=== PATIENT | female | born 1975 | race Caucasian/White ===

== ENCOUNTER → 2017-07-19 | Outpatient (CLI) | payer OTHER ==
[~2017-07-19] MED LIST: GADOBUTROL 7.5 MMOL/7.5 ML (GADAVIST) VIAL IV ONE
--- NOTE | 2017-07-19 11:30 | Diagnostic Imaging Report ---
EXAMINATION: Multiplanar, multisequence MRI of the brain is performed without and with intravenous contrast with thin section images through the pituitary gland area. INDICATION: Unexplained fever and headache. 7 mL of Omnipaque 350 is administered intravenously. FINDINGS: No diffusion restriction is seen to suggest an acute infarct or other diffusion abnormality. The brain parenchyma demonstrates normal signal in the rodríguez and white matter. No demyelinating lesion, brain edema or mass. No enhancing lesion. No hydrocephalus. No extra-axial fluid collection. The pituitary gland is normal in size. No hypothalamic or pineal region mass. Thin section images with dynamic postcontrast multiphase coronal images through the pituitary gland is performed and demonstrates no definite focal lesion. The orbits appear symmetric. There is mucosal retention cyst in the inferior aspect of the right maxillary sinus. IMPRESSION: Unremarkable exam. Dictated by: Dictated on workstation # [id number]
== END ==
LOC: RAD 07:53
PROVIDERS: ATTEND Nurse Practitioner Family
DX: D35.2 Benign neoplasm of pituitary gland (principal); R20.2 Paresthesia of skin; R51 Headache; R50.9 Fever, unspecified
CPT/HCPCS: 70553

== ENCOUNTER 2017-12-03 11:20 | Outpatient (RCR) | payer OTHER ==
[2017-09-14 13:30] VITALS: BP 134/84
[2017-09-14 13:46] LABS: BILIRUBIN,URINE NEGATIVE (NEGATIVE); CLARITY,URINE CLEAR; COLOR,URINE YELLOW; GLUCOSE, URINE (UA) NEGATIVE (NEGATIVE); KETONES,URINE NEGATIVE (NEGATIVE); LEUKOCYTE ESTERASE ,URINE 1+ (NEGATIVE); NITRITE,URINE NEGATIVE (NEGATIVE); PH,URINE 6.5 (5-9); PROTEIN,URINE NEGATIVE (NEGATIVE); UROBILINOGEN,URINE NORMAL (NORMAL)
[2017-09-14 14:06] LABS: RBC,URINE RARE /HPF
[2017-09-14 14:07] LABS: BACTERIA,URINE FEW /HPF
[2017-09-14] MEDS: cefTRIAXone 1 GM/NS 50 ML IVPB IV SCH ×2 (14:38)
[2017-09-14 14:47] LABS: MEAN PLATELET VOLUME 10.8 FL (7.4-10.4); RED BLOOD COUNT 4.33 10^6/uL (4.35-5.85); RED CELL DISTRIBUTION WIDTH 13.5 % (10.0-14.5)
[2017-09-14 15:03] LABS: ALANINE AMINOTRANSFERASE 15 U/L (0-55); ALBUMIN 4.1 GM/DL (3.2-4.5); ALKALINE PHOSPHATASE 49 U/L (40-136); BILIRUBIN,TOTAL 0.5 MG/DL (0.1-1.0); BUN/CREATININE RATIO 18; CALCIUM 9.3 MG/DL (8.5-10.1); CARBON DIOXIDE 22 MMOL/L (21-32); CHLORIDE 106 MMOL/L (98-107); CREATININE SERUM 0.72 MG/DL (0.60-1.30); GFR ESTIMATED > 60; GLUCOSE 105 MG/DL (70-105); SODIUM 137 MMOL/L (135-145)
[2017-09-14 15:10] VITALS: BP 134/84
[2017-09-15 11:20] VITALS: BP 135/99
[2017-09-15] MEDS: cefTRIAXone 1 GM/NS 50 ML IVPB IV SCH ×2 (11:31)
[2017-09-16] MEDS: cefTRIAXone 1 GM/NS 50 ML IVPB IV SCH ×2 (09:55)
[2017-09-16 10:00] VITALS: BP 123/76
[2017-09-17 11:40] VITALS: BP 114/72
[2017-09-17] MEDS: cefTRIAXone 1 GM/NS 50 ML IVPB IV SCH ×2 (11:45)
[2017-09-18] MEDS: cefTRIAXone 1 GM/NS 50 ML IVPB IV SCH ×2 (09:54)
[2017-09-18 09:56] VITALS: BP 121/79
[2017-09-18 10:23] VITALS: BP 121/79
[2017-09-19] MEDS: cefTRIAXone 1 GM/NS 50 ML IVPB IV SCH ×2 (09:18)
[2017-09-19 09:24] VITALS: BP 115/73
[2017-09-19 09:48] VITALS: BP 115/73
[2017-09-20 11:30] VITALS: BP 112/77
[2017-09-20] MEDS: cefTRIAXone 1 GM/NS 50 ML IVPB IV SCH ×2 (11:35)
[2017-09-21] MEDS: cefTRIAXone 1 GM/NS 50 ML IVPB IV SCH ×2 (11:52)
[2017-09-21 11:53] VITALS: BP 131/79
[2017-09-22 10:15] VITALS: BP 134/86
[2017-09-22] MEDS: cefTRIAXone 1 GM/NS 50 ML IVPB IV SCH ×2 (10:15)
[2017-09-23] MEDS: cefTRIAXone 1 GM/NS 50 ML IVPB IV SCH ×2 (08:56)
[2017-09-23 10:13] VITALS: BP 119/80
[2017-09-24] MEDS: cefTRIAXone 1 GM/NS 50 ML IVPB IV SCH ×2 (10:10)
[2017-09-24 10:42] VITALS: BP 116/80
[2017-09-25] MEDS: cefTRIAXone 1 GM/NS 50 ML IVPB IV SCH ×2 (09:15)
[2017-09-25] MEDS: CATHETER FLUSH 10 ML SYR IV PRN ×2 (09:15→09:45)
[2017-09-25 10:02] VITALS: BP 111/79
[2017-09-26] MEDS: cefTRIAXone 1 GM/NS 50 ML IVPB IV SCH ×2 (10:05)
[2017-09-26] MEDS: CATHETER FLUSH 10 ML SYR IV PRN ×2 (10:05→10:35)
[2017-09-26 10:37] VITALS: BP 118/77
[2017-09-27] MEDS: CATHETER FLUSH 10 ML SYR IV PRN ×2 (13:30→14:00)
[2017-09-27] MEDS: cefTRIAXone 1 GM/NS 50 ML IVPB IV SCH ×2 (13:30)
[2017-09-27 13:43] LABS: HEMOGLOBIN 12.8 G/DL (11.5-16.0); MEAN PLATELET VOLUME 10.9 FL (7.4-10.4); RED BLOOD COUNT 4.35 10^6/uL (4.35-5.85); RED CELL DISTRIBUTION WIDTH 13.4 % (10.0-14.5); WHITE BLOOD COUNT 9.3 10^3/uL (4.3-11.0)
[2017-09-27 14:01] LABS: ALANINE AMINOTRANSFERASE 12 U/L (0-55); ALBUMIN 4.3 GM/DL (3.2-4.5); ALKALINE PHOSPHATASE 51 U/L (40-136); BILIRUBIN,TOTAL 0.5 MG/DL (0.1-1.0); BUN/CREATININE RATIO 17; CALCIUM 9.4 MG/DL (8.5-10.1); CARBON DIOXIDE 25 MMOL/L (21-32); CHLORIDE 107 MMOL/L (98-107); CREATININE SERUM 0.81 MG/DL (0.60-1.30); GFR ESTIMATED > 60; GLUCOSE 122 MG/DL (70-105); POTASSIUM 3.9 MMOL/L (3.6-5.0); SODIUM 140 MMOL/L (135-145); TOTAL PROTEIN 6.9 GM/DL (6.4-8.2)
[2017-09-27 14:03] VITALS: BP 133/70
[2017-09-27 14:10] LABS: BILIRUBIN,URINE NEGATIVE (NEGATIVE); CLARITY,URINE CLEAR; COLOR,URINE YELLOW; GLUCOSE, URINE (UA) NEGATIVE (NEGATIVE); KETONES,URINE NEGATIVE (NEGATIVE); LEUKOCYTE ESTERASE ,URINE NEGATIVE (NEGATIVE); NITRITE,URINE NEGATIVE (NEGATIVE); PH,URINE 5 (5-9); PROTEIN,URINE NEGATIVE (NEGATIVE); UROBILINOGEN,URINE NORMAL (NORMAL)
[2017-09-27 14:16] LABS: BACTERIA,URINE NEGATIVE /HPF
[2017-09-28] MEDS: CATHETER FLUSH 10 ML SYR IV PRN ×2 (09:44→10:15)
[2017-09-28] MEDS: cefTRIAXone 1 GM/NS 50 ML IVPB IV SCH ×2 (09:45)
[2017-09-28 10:15] VITALS: BP 123/80
[2017-09-29] MEDS: CATHETER FLUSH 10 ML SYR IV PRN ×2 (10:14→10:48)
[2017-09-29] MEDS: cefTRIAXone 1 GM/NS 50 ML IVPB IV SCH ×2 (10:16)
[2017-09-29 10:48] VITALS: BP 129/83
[2017-09-30] MEDS: cefTRIAXone 1 GM/NS 50 ML IVPB IV SCH ×2 (09:57)
[2017-09-30 09:58] VITALS: BP 126/77
[2017-10-01] MEDS: cefTRIAXone 1 GM/NS 50 ML IVPB IV SCH ×2 (09:32)
[2017-10-01] MEDS: CATHETER FLUSH 10 ML SYR IV PRN (09:32)
[2017-10-01 10:45] VITALS: BP 127/95
[2017-10-02] MEDS: cefTRIAXone 1 GM/NS 50 ML IVPB IV SCH ×2 (09:51)
[2017-10-02] MEDS: CATHETER FLUSH 10 ML SYR IV PRN (09:53)
[2017-10-02 10:20] VITALS: BP 123/78
[2017-10-03] MEDS: CATHETER FLUSH 10 ML SYR IV PRN (10:00)
[2017-10-03] MEDS: cefTRIAXone 1 GM/NS 50 ML IVPB IV SCH ×2 (10:00)
[2017-10-03 10:30] VITALS: BP 111/86
[2017-10-04 12:30] VITALS: BP 116/79
[2017-10-04] MEDS: CATHETER FLUSH 10 ML SYR IV PRN (12:35)
[2017-10-04] MEDS: cefTRIAXone 1 GM/NS 50 ML IVPB IV SCH ×2 (12:40)
[2017-10-05] MEDS: cefTRIAXone 1 GM/NS 50 ML IVPB IV SCH ×2 (09:00)
[2017-10-05] MEDS: CATHETER FLUSH 10 ML SYR IV PRN ×2 (09:00→09:30)
[2017-10-05 09:14] LABS: HEMOGLOBIN 12.6 G/DL (11.5-16.0); MEAN PLATELET VOLUME 10.6 FL (7.4-10.4); RED BLOOD COUNT 4.23 10^6/uL (4.35-5.85); RED CELL DISTRIBUTION WIDTH 13.4 % (10.0-14.5); WHITE BLOOD COUNT 7.5 10^3/uL (4.3-11.0)
[2017-10-05 09:28] LABS: ALANINE AMINOTRANSFERASE 15 U/L (0-55); ALBUMIN 4.4 GM/DL (3.2-4.5); ALKALINE PHOSPHATASE 46 U/L (40-136); BILIRUBIN,TOTAL 0.6 MG/DL (0.1-1.0); BUN/CREATININE RATIO 17; CALCIUM 9.1 MG/DL (8.5-10.1); CARBON DIOXIDE 25 MMOL/L (21-32); CHLORIDE 108 MMOL/L (98-107); CREATININE SERUM 0.71 MG/DL (0.60-1.30); GFR ESTIMATED > 60; GLUCOSE 87 MG/DL (70-105); POTASSIUM 4.1 MMOL/L (3.6-5.0); SODIUM 140 MMOL/L (135-145)
[2017-10-05 09:40] VITALS: BP 109/89
[2017-10-05 09:44] LABS: BILIRUBIN,URINE NEGATIVE (NEGATIVE); CLARITY,URINE CLEAR; COLOR,URINE YELLOW; GLUCOSE, URINE (UA) NEGATIVE (NEGATIVE); KETONES,URINE NEGATIVE (NEGATIVE); LEUKOCYTE ESTERASE ,URINE NEGATIVE (NEGATIVE); NITRITE,URINE NEGATIVE (NEGATIVE); PH,URINE 7 (5-9); PROTEIN,URINE NEGATIVE (NEGATIVE); UROBILINOGEN,URINE NORMAL (NORMAL)
[2017-10-05 10:06] LABS: BACTERIA,URINE NEGATIVE /HPF
[2017-10-06] MEDS: cefTRIAXone 1 GM/NS 50 ML IVPB IV SCH ×2 (09:42)
[2017-10-06 10:23] VITALS: BP 138/82
[2017-10-07] MEDS: cefTRIAXone 1 GM/NS 100 ML IVPB IV SCH ×2 (10:04)
[2017-10-07 10:39] VITALS: BP 118/88
[2017-10-08] MEDS: cefTRIAXone 1 GM/NS 100 ML IVPB IV SCH ×2 (09:36)
[2017-10-08 10:09] VITALS: BP 122/81
[2017-10-09] MEDS: CATHETER FLUSH 10 ML SYR IV PRN ×2 (09:59→10:30)
[2017-10-09 10:00] VITALS: BP 119/75
[2017-10-09] MEDS: cefTRIAXone 1 GM/NS 100 ML IVPB IV SCH ×2 (10:00)
[2017-10-10] MEDS: CATHETER FLUSH 10 ML SYR IV PRN ×2 (10:17→10:46)
[2017-10-10] MEDS: cefTRIAXone 1 GM/NS 100 ML IVPB IV SCH ×2 (10:17)
[2017-10-10 10:57] VITALS: BP 129/90
[2017-10-11 10:30] VITALS: BP 121/73
[2017-10-11] MEDS: CATHETER FLUSH 10 ML SYR IV PRN (10:35)
[2017-10-11] MEDS: cefTRIAXone 1 GM/NS 100 ML IVPB IV SCH ×2 (10:40)
[2017-10-12] MEDS: cefTRIAXone 1 GM/NS 100 ML IVPB IV SCH ×2 (09:50)
[2017-10-12] MEDS: CATHETER FLUSH 10 ML SYR IV PRN ×2 (09:50→10:23)
[2017-10-12 10:03] LABS: HEMOGLOBIN 12.6 G/DL (11.5-16.0); MEAN PLATELET VOLUME 10.8 FL (7.4-10.4); RED BLOOD COUNT 4.17 10^6/uL (4.35-5.85); RED CELL DISTRIBUTION WIDTH 13.5 % (10.0-14.5); WHITE BLOOD COUNT 7.8 10^3/uL (4.3-11.0)
[2017-10-12 10:19] LABS: ALANINE AMINOTRANSFERASE 12 U/L (0-55); ALBUMIN 4.2 GM/DL (3.2-4.5); ALKALINE PHOSPHATASE 47 U/L (40-136); BILIRUBIN,TOTAL 0.5 MG/DL (0.1-1.0); BUN/CREATININE RATIO 18; CALCIUM 8.8 MG/DL (8.5-10.1); CARBON DIOXIDE 23 MMOL/L (21-32); CHLORIDE 109 MMOL/L (98-107); CREATININE SERUM 0.72 MG/DL (0.60-1.30); GFR ESTIMATED > 60; GLUCOSE 110 MG/DL (70-105); POTASSIUM 3.9 MMOL/L (3.6-5.0); SODIUM 140 MMOL/L (135-145); TOTAL PROTEIN 6.8 GM/DL (6.4-8.2)
[2017-10-12 10:30] VITALS: BP 117/76
[2017-10-12 10:34] LABS: CLARITY,URINE CLEAR; COLOR,URINE YELLOW; GLUCOSE, URINE (UA) NEGATIVE (NEGATIVE); KETONES,URINE NEGATIVE (NEGATIVE); LEUKOCYTE ESTERASE ,URINE 1+ (NEGATIVE); NITRITE,URINE NEGATIVE (NEGATIVE); PH,URINE 6 (5-9); PROTEIN,URINE NEGATIVE (NEGATIVE); UROBILINOGEN,URINE NORMAL (NORMAL)
[2017-10-12 10:51] LABS: BACTERIA,URINE NEGATIVE /HPF; BILIRUBIN,URINE 2+ (NEGATIVE)
[2017-10-13 13:20] VITALS: BP 127/73
[2017-10-13] MEDS: CATHETER FLUSH 10 ML SYR IV PRN (13:25)
[2017-10-13] MEDS: cefTRIAXone 1 GM/NS 100 ML IVPB IV SCH ×2 (13:30)
[2017-10-14 11:10] VITALS: BP 110/82
[2017-10-14] MEDS: CATHETER FLUSH 10 ML SYR IV PRN (11:15)
[2017-10-14] MEDS: cefTRIAXone 1 GM/NS 100 ML IVPB IV SCH ×2 (11:20)
[2017-10-15] MEDS: CATHETER FLUSH 10 ML SYR IV PRN ×2 (09:18→09:46)
[2017-10-15] MEDS: cefTRIAXone 1 GM/NS 100 ML IVPB IV SCH ×2 (09:18)
[2017-10-15 09:46] VITALS: BP 112/71
[2017-10-16 09:50] VITALS: BP 106/76
[2017-10-16] MEDS: CATHETER FLUSH 10 ML SYR IV PRN (09:55)
[2017-10-16] MEDS: cefTRIAXone 1 GM/NS 100 ML IVPB IV SCH ×2 (10:00)
[2017-10-17 10:15] VITALS: BP 130/81
[2017-10-17] MEDS: CATHETER FLUSH 10 ML SYR IV PRN (10:17)
[2017-10-17] MEDS: cefTRIAXone 1 GM/NS 100 ML IVPB IV SCH ×2 (10:18)
[2017-10-18] MEDS: CATHETER FLUSH 10 ML SYR IV PRN ×2 (11:39→12:10)
[2017-10-18] MEDS: cefTRIAXone 1 GM/NS 100 ML IVPB IV SCH ×2 (11:40)
[2017-10-18 12:15] VITALS: BP 117/74
[2017-10-19] MEDS: CATHETER FLUSH 10 ML SYR IV PRN ×2 (10:54→11:25)
[2017-10-19] MEDS: cefTRIAXone 1 GM/NS 100 ML IVPB IV SCH ×2 (10:55)
[2017-10-19 11:45] VITALS: BP 121/82
[2017-10-19 12:01] LABS: HEMOGLOBIN 12.4 G/DL (11.5-16.0); MEAN PLATELET VOLUME 11.1 FL (7.4-10.4); RED BLOOD COUNT 4.19 10^6/uL (4.35-5.85); RED CELL DISTRIBUTION WIDTH 13.7 % (10.0-14.5); WHITE BLOOD COUNT 5.8 10^3/uL (4.3-11.0)
[2017-10-19 12:02] LABS: BILIRUBIN,URINE NEGATIVE (NEGATIVE); CLARITY,URINE CLEAR; COLOR,URINE YELLOW; GLUCOSE, URINE (UA) NEGATIVE (NEGATIVE); KETONES,URINE NEGATIVE (NEGATIVE); LEUKOCYTE ESTERASE ,URINE 1+ (NEGATIVE); NITRITE,URINE NEGATIVE (NEGATIVE); PH,URINE 7 (5-9); PROTEIN,URINE NEGATIVE (NEGATIVE); UROBILINOGEN,URINE NORMAL (NORMAL)
[2017-10-19 12:11] LABS: BACTERIA,URINE TRACE /HPF; WBC,URINE RARE /HPF
[2017-10-19 12:18] LABS: ALANINE AMINOTRANSFERASE 16 U/L (0-55); ALBUMIN 4.3 GM/DL (3.2-4.5); ALKALINE PHOSPHATASE 50 U/L (40-136); BILIRUBIN,TOTAL 0.5 MG/DL (0.1-1.0); BUN/CREATININE RATIO 16; CALCIUM 9.2 MG/DL (8.5-10.1); CARBON DIOXIDE 28 MMOL/L (21-32); CHLORIDE 108 MMOL/L (98-107); CREATININE SERUM 0.79 MG/DL (0.60-1.30); GFR ESTIMATED > 60; GLUCOSE 94 MG/DL (70-105); POTASSIUM 4.2 MMOL/L (3.6-5.0); SODIUM 141 MMOL/L (135-145); TOTAL PROTEIN 6.9 GM/DL (6.4-8.2)
[2017-10-20] MEDS: cefTRIAXone 1 GM/NS 100 ML IVPB IV SCH ×2 (11:02)
[2017-10-20 11:03] VITALS: BP 107/74
[2017-10-20 11:37] VITALS: BP 107/74
[2017-10-21] MEDS: cefTRIAXone 1 GM/NS 100 ML IVPB IV SCH ×2 (10:41)
[2017-10-21 10:44] VITALS: BP 108/76
[2017-10-21 11:12] VITALS: BP 108/76
[2017-10-22 09:55] VITALS: BP 117/88
[2017-10-22] MEDS: CATHETER FLUSH 10 ML SYR IV PRN (09:59)
[2017-10-22] MEDS: cefTRIAXone 1 GM/NS 100 ML IVPB IV SCH ×2 (10:00)
[2017-10-23 09:55] VITALS: BP 120/81
[2017-10-23] MEDS: cefTRIAXone 1 GM/NS 100 ML IVPB IV SCH ×2 (10:05)
[2017-10-24] MEDS: CATHETER FLUSH 10 ML SYR IV PRN (10:20)
[2017-10-24] MEDS: cefTRIAXone 1 GM/NS 100 ML IVPB IV SCH ×2 (10:20)
[2017-10-24 11:54] VITALS: BP 126/71
[2017-10-25] MEDS: cefTRIAXone 1 GM/NS 100 ML IVPB IV SCH ×2 (11:10)
[2017-10-25 11:40] VITALS: BP 107/61
[2017-10-26 12:30] VITALS: BP 120/86
[2017-10-26] MEDS: CATHETER FLUSH 10 ML SYR IV PRN (12:45)
[2017-10-26 14:51] LABS: HEMOGLOBIN 12.9 G/DL (11.5-16.0); RED BLOOD COUNT 4.29 10^6/uL (4.35-5.85); RED CELL DISTRIBUTION WIDTH 13.8 % (10.0-14.5); WHITE BLOOD COUNT 7.8 10^3/uL (4.3-11.0)
[2017-10-26 14:52] LABS: BILIRUBIN,URINE NEGATIVE (NEGATIVE); CLARITY,URINE SLIGHTLY CLOUDY; COLOR,URINE YELLOW; GLUCOSE, URINE (UA) NEGATIVE (NEGATIVE); KETONES,URINE NEGATIVE (NEGATIVE); LEUKOCYTE ESTERASE ,URINE NEGATIVE (NEGATIVE); NITRITE,URINE NEGATIVE (NEGATIVE); PH,URINE 6 (5-9); PROTEIN,URINE NEGATIVE (NEGATIVE); UROBILINOGEN,URINE NORMAL (NORMAL)
[2017-10-26 15:02] LABS: ALANINE AMINOTRANSFERASE 14 U/L (0-55); ALBUMIN 4.4 GM/DL (3.2-4.5); ALKALINE PHOSPHATASE 43 U/L (40-136); BILIRUBIN,TOTAL 0.5 MG/DL (0.1-1.0); BUN/CREATININE RATIO 19; CALCIUM 9.4 MG/DL (8.5-10.1); CARBON DIOXIDE 25 MMOL/L (21-32); CHLORIDE 106 MMOL/L (98-107); CREATININE SERUM 0.72 MG/DL (0.60-1.30); GFR ESTIMATED > 60; GLUCOSE 109 MG/DL (70-105); SODIUM 139 MMOL/L (135-145); TOTAL PROTEIN 6.9 GM/DL (6.4-8.2)
[2017-10-26 15:04] LABS: BACTERIA,URINE NEGATIVE /HPF
[2017-11-02] MEDS: CATHETER FLUSH 10 ML SYR IV PRN (10:10)
[2017-11-02 10:25] VITALS: BP 118/84
[2017-11-09] MEDS: CATHETER FLUSH 10 ML SYR IV PRN (10:38)
[2017-11-09 10:42] VITALS: BP 124/82
[2017-11-16 11:31] VITALS: BP 122/78
[2017-11-23 11:15] VITALS: BP 113/81
[2017-11-23] MEDS: CATHETER FLUSH 10 ML SYR IV PRN (11:15)
[2017-12-02 13:25] VITALS: BP 117/83
[~2017-12-03 11:20] MED LIST changes: -GADOBUTROL 7.5 MMOL/7.5 ML (GADAVIST) VIAL IV ONE; +NS (IVPB) 100 ML ONE; +cefTRIAXone 1 GM (ROCEPHIN) VIAL ONE
[2017-12-03] MEDS ORDERED: AZITHROMYCIN 500 MG/NS 250 ML IVPB IV SCH ×2 (11:28)
[2017-12-03 11:59] LABS: HEMOGLOBIN 13.2 G/DL (11.5-16.0); MEAN PLATELET VOLUME 10.7 FL (7.4-10.4); RED BLOOD COUNT 4.42 10^6/uL (4.35-5.85); RED CELL DISTRIBUTION WIDTH 13.5 % (10.0-14.5); WHITE BLOOD COUNT 7.2 10^3/uL (4.3-11.0)
[2017-12-03 12:18] LABS: ALANINE AMINOTRANSFERASE 13 U/L (0-55); ALBUMIN 4.4 GM/DL (3.2-4.5); ALKALINE PHOSPHATASE 45 U/L (40-136); BILIRUBIN,TOTAL 0.8 MG/DL (0.1-1.0); BUN/CREATININE RATIO 16; CALCIUM 9.4 MG/DL (8.5-10.1); CARBON DIOXIDE 23 MMOL/L (21-32); CHLORIDE 107 MMOL/L (98-107); CREATININE SERUM 0.74 MG/DL (0.60-1.30); GFR ESTIMATED > 60; GLUCOSE 101 MG/DL (70-105); POTASSIUM 4.1 MMOL/L (3.6-5.0); SODIUM 140 MMOL/L (135-145); TOTAL PROTEIN 6.8 GM/DL (6.4-8.2)
[2017-12-03 13:01] LABS: CLARITY,URINE CLEAR; COLOR,URINE YELLOW; GLUCOSE, URINE (UA) NEGATIVE (NEGATIVE); KETONES,URINE NEGATIVE (NEGATIVE); LEUKOCYTE ESTERASE ,URINE 1+ (NEGATIVE); NITRITE,URINE NEGATIVE (NEGATIVE); PH,URINE 6 (5-9); PROTEIN,URINE NEGATIVE (NEGATIVE); UROBILINOGEN,URINE NORMAL (NORMAL)
[2017-12-03 13:12] LABS: BACTERIA,URINE NEGATIVE /HPF; BILIRUBIN,URINE 1+ (NEGATIVE)
== END 2017-12-03 12:20 | disposition home or self-care (01) ==
LOC: SDC 11:20
PROVIDERS: ATTEND Nurse Practitioner Family
DX: A69.22 Other neurologic disorders in Lyme disease (principal); Z45.2 Encounter for adjustment and management of vascular access device
CPT/HCPCS: 36415; 36569; 36592; 76937; 80053; 81000; 85027; 87077; 87088; 87186; 96365; 99211; 99212

== ENCOUNTER 2017-12-23 11:01 | Outpatient (RCR) | payer OTHER ==
[2017-12-03 11:30] VITALS: BP 114/76
[2017-12-03] MEDS: CATHETER FLUSH 10 ML SYR IV PRN (11:40)
[2017-12-03] MEDS: AZITHROMYCIN 500 MG/NS 250 ML IVPB IV SCH ×2 (11:45)
[2017-12-04] MEDS: CATHETER FLUSH 10 ML SYR IV PRN ×2 (09:15→10:20)
[2017-12-04] MEDS: AZITHROMYCIN 500 MG/NS 250 ML IVPB IV SCH ×2 (09:15)
[2017-12-04 09:38] VITALS: BP 117/76
[2017-12-05] MEDS: AZITHROMYCIN 500 MG/NS 250 ML IVPB IV SCH ×2 (09:34)
[2017-12-05] MEDS: CATHETER FLUSH 10 ML SYR IV PRN ×2 (09:35→10:36)
[2017-12-05 10:48] VITALS: BP 110/77
[2017-12-06] MEDS: CATHETER FLUSH 10 ML SYR IV PRN ×2 (10:29→11:30)
[2017-12-06] MEDS: AZITHROMYCIN 500 MG/NS 250 ML IVPB IV SCH ×2 (10:30)
[2017-12-06 11:39] VITALS: BP 117/73
[2017-12-07 10:00] VITALS: BP 117/73
[2017-12-07] MEDS: CATHETER FLUSH 10 ML SYR IV PRN (10:04)
[2017-12-07] MEDS: AZITHROMYCIN 500 MG/NS 250 ML IVPB IV SCH ×2 (10:05)
[2017-12-08] MEDS: CATHETER FLUSH 10 ML SYR IV PRN ×2 (11:01→12:00)
[2017-12-08] MEDS: AZITHROMYCIN 500 MG/NS 250 ML IVPB IV SCH ×2 (11:01)
[2017-12-08 11:22] VITALS: BP 112/77
[2017-12-09 11:58] VITALS: BP 128/84
[2017-12-09] MEDS: CATHETER FLUSH 10 ML SYR IV PRN (11:58)
[2017-12-09] MEDS: AZITHROMYCIN 500 MG/NS 250 ML IVPB IV SCH ×2 (11:58)
[2017-12-10] MEDS: AZITHROMYCIN 500 MG/NS 250 ML IVPB IV SCH ×2 (10:11)
[2017-12-10 10:23] LABS: BASOPHILS % (AUTO) 0 % (0-10); EOSINOPHILS # (AUTO) 0.1 10^3/uL (0.0-0.3); EOSINOPHILS % (AUTO) 1 % (0-10); HEMATOCRIT 36 % (35-52); HEMOGLOBIN 12.2 G/DL (11.5-16.0); LYMPHOCYTES % (AUTO) 31 % (12-44); MEAN CORPUSCULAR HEMOGLOBIN 30 PG (25-34); MEAN CORPUSCULAR HGB CONC 34 G/DL (32-36); MEAN CORPUSCULAR VOLUME 87 FL (80-99); MEAN PLATELET VOLUME 10.6 FL (7.4-10.4); MONOCYTES # (AUTO) 0.5 X 10^3 (0.0-1.0); MONOCYTES % (AUTO) 8 % (0-12); NEUTROPHILS # (AUTO) 3.9 X 10^3 (1.8-7.8); NEUTROPHILS % (AUTO) 60 % (42-75); PLATELET COUNT 250 10^3/uL (130-400); RED BLOOD COUNT 4.11 10^6/uL (4.35-5.85); RED CELL DISTRIBUTION WIDTH 13.8 % (10.0-14.5); WHITE BLOOD COUNT 6.5 10^3/uL (4.3-11.0)
[2017-12-10 10:26] VITALS: BP 118/76
[2017-12-10 10:35] LABS: ALANINE AMINOTRANSFERASE 13 U/L (0-55); ALBUMIN 4.4 GM/DL (3.2-4.5); ALKALINE PHOSPHATASE 51 U/L (40-136); BILIRUBIN,TOTAL 0.5 MG/DL (0.1-1.0); BUN/CREATININE RATIO 17; CALCIUM 9.7 MG/DL (8.5-10.1); CARBON DIOXIDE 27 MMOL/L (21-32); CHLORIDE 110 MMOL/L (98-107); CREATININE SERUM 0.71 MG/DL (0.60-1.30); GFR ESTIMATED > 60; GLUCOSE 103 MG/DL (70-105); POTASSIUM 4.1 MMOL/L (3.6-5.0); SODIUM 142 MMOL/L (135-145); TOTAL PROTEIN 6.7 GM/DL (6.4-8.2)
[2017-12-10 11:17] VITALS: BP 118/76
[2017-12-10 11:26] LABS: BILIRUBIN,URINE NEGATIVE (NEGATIVE); CLARITY,URINE CLEAR; COLOR,URINE YELLOW; GLUCOSE, URINE (UA) NEGATIVE (NEGATIVE); KETONES,URINE NEGATIVE (NEGATIVE); LEUKOCYTE ESTERASE ,URINE 1+ (NEGATIVE); NITRITE,URINE NEGATIVE (NEGATIVE); PH,URINE 6.5 (5-9); PROTEIN,URINE NEGATIVE (NEGATIVE); UROBILINOGEN,URINE NORMAL (NORMAL)
[2017-12-10 11:35] LABS: BACTERIA,URINE NEGATIVE /HPF; RBC,URINE 25-50 /HPF; SQUAMOUS EPITHELIAL CELL,UR 0-2 /HPF; WBC,URINE RARE /HPF
[2017-12-11] MEDS: CATHETER FLUSH 10 ML SYR IV PRN (09:14)
[2017-12-11] MEDS: AZITHROMYCIN 500 MG/NS 250 ML IVPB IV SCH ×2 (09:15)
[2017-12-11 09:56] VITALS: BP 111/82
[2017-12-12 08:55] VITALS: BP 107/79
[2017-12-12] MEDS: CATHETER FLUSH 10 ML SYR IV PRN (09:00)
[2017-12-12] MEDS: AZITHROMYCIN 500 MG/NS 250 ML IVPB IV SCH ×2 (09:00)
[2017-12-16 10:48] VITALS: BP 116/79
[2017-12-23 11:36] VITALS: BP 115/77
[2017-12-27] MEDS ORDERED: cefTRIAXone 1 GM (ROCEPHIN) VIAL ONE (11:22)
[2017-12-27] MEDS ORDERED: NS (IVPB) 50 ML ONE (11:23)
== END 2018-03-03 | disposition home or self-care (01) ==
LOC: SDC 11:01
PROVIDERS: ATTEND Nurse Practitioner Family
DX: B60.0 Babesiosis (principal)
CPT/HCPCS: 36415; 36592; 80053; 81000; 85025; 96365; 99211

== ENCOUNTER 2018-01-13 11:35 | Outpatient (RCR) | payer OTHER ==
[2017-12-27 11:35] LABS: HEMOGLOBIN 13.1 G/DL (11.5-16.0); MEAN PLATELET VOLUME 10.9 FL (7.4-10.4); RED BLOOD COUNT 4.45 10^6/uL (4.35-5.85); RED CELL DISTRIBUTION WIDTH 13.4 % (10.0-14.5); WHITE BLOOD COUNT 7.6 10^3/uL (4.3-11.0)
[2017-12-27 11:36] VITALS: BP 132/94
[2017-12-27] MEDS: cefTRIAXone 1 GM/NS 50 ML IVPB IV SCH ×2 (11:36)
[2017-12-27 11:38] LABS: BILIRUBIN,URINE NEGATIVE (NEGATIVE); CLARITY,URINE CLEAR; COLOR,URINE YELLOW; GLUCOSE, URINE (UA) NEGATIVE (NEGATIVE); KETONES,URINE NEGATIVE (NEGATIVE); LEUKOCYTE ESTERASE ,URINE NEGATIVE (NEGATIVE); NITRITE,URINE NEGATIVE (NEGATIVE); PH,URINE 7 (5-9); PROTEIN,URINE NEGATIVE (NEGATIVE); UROBILINOGEN,URINE NORMAL (NORMAL)
[2017-12-27 11:54] LABS: ALANINE AMINOTRANSFERASE 13 U/L (0-55); ALBUMIN 4.5 GM/DL (3.2-4.5); ALKALINE PHOSPHATASE 50 U/L (40-136); BILIRUBIN,TOTAL 0.6 MG/DL (0.1-1.0); BUN/CREATININE RATIO 16; CALCIUM 9.5 MG/DL (8.5-10.1); CARBON DIOXIDE 23 MMOL/L (21-32); CHLORIDE 108 MMOL/L (98-107); CREATININE SERUM 0.81 MG/DL (0.60-1.30); GFR ESTIMATED > 60; GLUCOSE 96 MG/DL (70-105); POTASSIUM 4.3 MMOL/L (3.6-5.0); SODIUM 139 MMOL/L (135-145); TOTAL PROTEIN 7.1 GM/DL (6.4-8.2)
[2017-12-27 12:00] VITALS: BP 132/94
[2017-12-27] MEDS: CATHETER FLUSH 10 ML SYR IV PRN (12:00)
[2017-12-27 12:01] LABS: BACTERIA,URINE NEGATIVE /HPF
[2017-12-28] MEDS: cefTRIAXone 1 GM/NS 50 ML IVPB IV SCH ×2 (10:20)
[2017-12-28] MEDS: CATHETER FLUSH 10 ML SYR IV PRN ×2 (10:20→10:52)
[2017-12-28 10:54] VITALS: BP 110/77
[2017-12-29] MEDS: cefTRIAXone 1 GM/NS 50 ML IVPB IV SCH ×2 (10:40)
[2017-12-29] MEDS: CATHETER FLUSH 10 ML SYR IV PRN (10:40)
[2017-12-29 10:42] VITALS: BP 112/76
[2017-12-29 11:09] VITALS: BP 112/76
[2017-12-30 11:10] VITALS: BP 128/80
[2017-12-30] MEDS: CATHETER FLUSH 10 ML SYR IV PRN (11:23)
[2017-12-30] MEDS: cefTRIAXone 1 GM/NS 50 ML IVPB IV SCH ×2 (11:23)
[2017-12-31 12:10] VITALS: BP 112/72
[2017-12-31] MEDS: cefTRIAXone 1 GM/NS 50 ML IVPB IV SCH ×2 (12:12)
[2018-01-01] MEDS: cefTRIAXone 1 GM/NS 50 ML IVPB IV SCH ×2 (10:02)
[2018-01-01 10:10] VITALS: BP 113/71
[2018-01-01] MEDS: CATHETER FLUSH 10 ML SYR IV PRN (10:10)
[2018-01-02 09:50] VITALS: BP 112/81
[2018-01-02] MEDS: cefTRIAXone 1 GM/NS 50 ML IVPB IV SCH ×2 (09:55)
[2018-01-03] MEDS: CATHETER FLUSH 10 ML SYR IV PRN ×2 (10:19→10:48)
[2018-01-03] MEDS: cefTRIAXone 1 GM/NS 50 ML IVPB IV SCH ×2 (10:20)
[2018-01-03 10:50] VITALS: BP 123/81
[2018-01-04] MEDS: cefTRIAXone 1 GM/NS 50 ML IVPB IV SCH ×2 (09:21)
[2018-01-04] MEDS: CATHETER FLUSH 10 ML SYR IV PRN (09:21)
[2018-01-04 09:45] VITALS: BP 116/76
[2018-01-05 10:40] VITALS: BP 125/81
[2018-01-05] MEDS: cefTRIAXone 1 GM/NS 50 ML IVPB IV SCH ×2 (10:56)
[2018-01-05] MEDS: CATHETER FLUSH 10 ML SYR IV PRN (10:56)
[2018-01-05 11:28] VITALS: BP 125/81
[2018-01-06] MEDS: cefTRIAXone 1 GM/NS 50 ML IVPB IV SCH ×2 (10:12)
[2018-01-06] MEDS: CATHETER FLUSH 10 ML SYR IV PRN (10:13)
[2018-01-06 10:14] VITALS: BP 113/78
[2018-01-07 11:15] VITALS: BP 115/74
[2018-01-07] MEDS: cefTRIAXone 1 GM/NS 50 ML IVPB IV SCH ×2 (11:20)
[2018-01-08] MEDS: cefTRIAXone 1 GM/NS 50 ML IVPB IV SCH ×2 (09:05)
[2018-01-08 09:31] VITALS: BP 109/76
[2018-01-09] MEDS: cefTRIAXone 1 GM/NS 50 ML IVPB IV SCH ×2 (10:10)
[2018-01-09] MEDS: CATHETER FLUSH 10 ML SYR IV PRN (10:10)
[2018-01-09 10:12] VITALS: BP 126/78
[~2018-01-13] VITALS: Ht 172.7 cm; Wt 81.6 kg
[2018-01-13 12:08] VITALS: BP 0/0
[2018-01-20 14:35] VITALS: BP 126/79
== END 2018-03-27 | disposition home or self-care (01) ==
LOC: SDC 11:35
PROVIDERS: ATTEND Nurse Practitioner Family
DX: A69.22 Other neurologic disorders in Lyme disease (principal)
CPT/HCPCS: 36415; 36592; 80053; 81000; 85027; 96365; 99211

== ENCOUNTER → 2020-07-10 | Outpatient (CLI) | payer OTHER ==
--- NOTE | 2020-07-10 13:28 | Diagnostic Imaging Report ---
CLINICAL INDICATION: Patient with chest tightness for past month. EXAM: Chest x-ray PA and lateral views. COMPARISONS: None. FINDINGS: Lungs/pleura: Slightly elevated right hemidiaphragm is seen. Otherwise, lungs are clear. There is no pneumothorax. There is no pleural effusion. Mediastinum: Unremarkable. Pulmonary vasculature: Unremarkable. Heart: Unremarkable. Bones/extrathoracic soft tissue: There are degenerative spurs involving the thoracic spine. IMPRESSION: There is no radiographic evidence of acute cardiopulmonary process. Dictated by: Dictated on workstation # [id number]
== END ==
LOC: RAD 12:56
PROVIDERS: ATTEND Nurse Practitioner Family
DX: R07.89 Other chest pain (principal); R06.00 Dyspnea, unspecified
CPT/HCPCS: 71046

== ENCOUNTER → 2022-05-08 | Outpatient (RCR) | payer BC ==
[2022-04-27 15:01] VITALS: BP 129/78
[2022-04-27] MEDS: cefTRIAXone 1 GM PRE-MIX 50 ML IV SCH (15:35)
[2022-04-28] MEDS: cefTRIAXone 1 GM PRE-MIX 50 ML IV SCH (10:21)
[2022-04-28 10:27] VITALS: BP 125/75
[2022-04-29] MEDS: cefTRIAXone 1 GM PRE-MIX 50 ML IV SCH (10:10)
[2022-04-29 10:13] VITALS: BP 125/78
[2022-04-30] MEDS: cefTRIAXone 1 GM PRE-MIX 50 ML IV SCH (08:26)
[2022-04-30 08:35] VITALS: BP 123/81
[2022-05-01 09:25] VITALS: BP 109/75
[2022-05-01] MEDS: cefTRIAXone 1 GM PRE-MIX 50 ML IV SCH (09:50)
[2022-05-02] MEDS: cefTRIAXone 1 GM PRE-MIX 50 ML IV SCH (11:03)
[2022-05-02 11:35] VITALS: BP 126/76
[2022-05-03] MEDS: cefTRIAXone 1 GM PRE-MIX 50 ML IV SCH (09:08)
[2022-05-03 09:34] VITALS: BP 137/85
[2022-05-04] MEDS: cefTRIAXone 1 GM PRE-MIX 50 ML IV SCH (09:26)
[2022-05-04 09:56] VITALS: BP 119/78
[2022-05-05] MEDS: cefTRIAXone 1 GM PRE-MIX 50 ML IV SCH (09:24)
[2022-05-05 09:38] VITALS: BP 123/83
[2022-05-06] MEDS: cefTRIAXone 1 GM PRE-MIX 50 ML IV SCH (09:06)
[2022-05-06 09:13] VITALS: BP 122/78
[2022-05-07] MEDS: cefTRIAXone 1 GM PRE-MIX 50 ML IV SCH (08:29)
[2022-05-07 08:55] VITALS: BP 108/67
[~2022-05-08] VITALS: Ht 172.7 cm; Wt 86.0 kg
[2022-05-08 11:00] VITALS: BP 113/82
[2022-05-08] MEDS: cefTRIAXone 1 GM PRE-MIX 50 ML IV SCH (11:07)
== END | disposition home or self-care (01) ==
LOC: SDC 04-27 14:34
PROVIDERS: ATTEND Nurse Practitioner Family
DX: A93.8 Other specified arthropod-borne viral fevers (principal); W57.XXXA Bitten or stung by nonvenomous insect and other nonvenomous arthropods, initial encounter
CPT/HCPCS: 36569; 76937; 96365; C1751; 99211

== ENCOUNTER → 2022-06-08 | Outpatient (RCR) | payer BC ==
[2022-05-09 09:42] VITALS: BP 113/80
[2022-05-10] MEDS: cefTRIAXone 1 GM PRE-MIX 50 ML IV SCH (10:29)
[2022-05-10 10:38] VITALS: BP 121/70
[2022-05-10 11:00] VITALS: BP 121/70
[2022-05-11] MEDS: cefTRIAXone 1 GM PRE-MIX 50 ML IV SCH (08:52)
[2022-05-11 08:56] VITALS: BP 116/76
[2022-05-12 09:25] VITALS: BP 126/79
[2022-05-12] MEDS: cefTRIAXone 1 GM PRE-MIX 50 ML IV SCH (09:33)
[2022-05-13] MEDS: cefTRIAXone 1 GM PRE-MIX 50 ML IV SCH (08:48)
[2022-05-13 09:00] VITALS: BP 125/71
[2022-05-14 09:00] VITALS: BP 117/81
[2022-05-14] MEDS: cefTRIAXone 1 GM PRE-MIX 50 ML IV SCH (09:31)
[2022-05-15] MEDS: cefTRIAXone 1 GM PRE-MIX 50 ML IV SCH (08:34)
[2022-05-15 08:38] VITALS: BP 120/73
[2022-05-16] MEDS: cefTRIAXone 1 GM PRE-MIX 50 ML IV SCH (09:09)
[2022-05-16 09:32] VITALS: BP 116/83
[2022-05-17] MEDS: cefTRIAXone 1 GM PRE-MIX 50 ML IV SCH (09:13)
[2022-05-17 09:19] VITALS: BP 114/76
[2022-05-18] MEDS: cefTRIAXone 1 GM PRE-MIX 50 ML IV SCH (09:34)
[2022-05-18 09:43] VITALS: BP 118/84
[2022-05-19] MEDS: cefTRIAXone 1 GM PRE-MIX 50 ML IV SCH (09:37)
[2022-05-19 09:45] VITALS: BP 119/77
[2022-05-20] MEDS: cefTRIAXone 1 GM PRE-MIX 50 ML IV SCH (09:21)
[2022-05-20 10:02] VITALS: BP 120/72
[2022-05-21] MEDS: cefTRIAXone 1 GM PRE-MIX 50 ML IV SCH (08:38)
[2022-05-21 08:39] VITALS: BP 119/77
[2022-05-22 09:25] VITALS: BP 111/74
[2022-05-22] MEDS: cefTRIAXone 1 GM PRE-MIX 50 ML IV SCH (09:27)
[2022-05-23] MEDS: cefTRIAXone 1 GM PRE-MIX 50 ML IV SCH (08:45)
[2022-05-23 10:14] VITALS: BP 121/66
[2022-05-24 09:30] VITALS: BP 115/78
[2022-05-24] MEDS: cefTRIAXone 1 GM PRE-MIX 50 ML IV SCH (09:32)
[2022-05-25 09:50] VITALS: BP 123/86
[2022-05-26] MEDS: cefTRIAXone 1 GM PRE-MIX 50 ML IV SCH (10:12)
[2022-05-26 10:25] VITALS: BP 111/71
[2022-05-27 09:20] VITALS: BP 116/77
[2022-05-27] MEDS: cefTRIAXone 1 GM PRE-MIX 50 ML IV SCH (09:32)
[2022-05-28] MEDS: cefTRIAXone 1 GM PRE-MIX 50 ML IV SCH (09:50)
[2022-05-28 10:05] VITALS: BP 120/82
[2022-05-29 09:18] VITALS: BP 120/72
[2022-05-29] MEDS: cefTRIAXone 1 GM PRE-MIX 50 ML IV SCH (09:39)
[2022-05-30 09:20] VITALS: BP 117/70
[2022-05-30] MEDS: cefTRIAXone 1 GM PRE-MIX 50 ML IV SCH (09:48)
[2022-05-31] MEDS: cefTRIAXone 1 GM PRE-MIX 50 ML IV SCH (09:46)
[2022-05-31 09:51] VITALS: BP 121/73
[2022-06-01] MEDS: cefTRIAXone 1 GM PRE-MIX 50 ML IV SCH (08:58)
[2022-06-01 09:01] VITALS: BP 121/79
[2022-06-02 09:40] VITALS: BP 121/76
[2022-06-02] MEDS: cefTRIAXone 1 GM PRE-MIX 50 ML IV SCH (10:16)
[2022-06-03] MEDS: cefTRIAXone 1 GM PRE-MIX 50 ML IV SCH (09:50)
[2022-06-03 09:56] VITALS: BP 132/76
[2022-06-04] MEDS: cefTRIAXone 1 GM PRE-MIX 50 ML IV SCH (10:01)
[2022-06-04 10:10] VITALS: BP 118/78
[2022-06-05 09:40] VITALS: BP 113/68
[2022-06-05] MEDS: cefTRIAXone 1 GM PRE-MIX 50 ML IV SCH (09:50)
[2022-06-06] MEDS: cefTRIAXone 1 GM PRE-MIX 50 ML IV SCH (09:04)
[2022-06-06 09:05] VITALS: BP 115/72
[2022-06-07] MEDS: cefTRIAXone 1 GM PRE-MIX 50 ML IV SCH (09:07)
[2022-06-07 09:15] VITALS: BP 121/71
[~2022-06-08] VITALS: Ht 173 cm; Wt 86.0 kg
[2022-06-08] MEDS: cefTRIAXone 1 GM PRE-MIX 50 ML IV SCH (10:03)
[2022-06-08 10:30] VITALS: BP 114/73
== END | disposition home or self-care (01) ==
LOC: SDC 05-09 08:57
PROVIDERS: ATTEND Nurse Practitioner Family
DX: A93.8 Other specified arthropod-borne viral fevers (principal); W57.XXXA Bitten or stung by nonvenomous insect and other nonvenomous arthropods, initial encounter
CPT/HCPCS: 96365; 99211

== ENCOUNTER 2022-06-09 09:35 | Outpatient (RCR) | payer BC ==
[2022-06-09] MEDS ORDERED: cefTRIAXone 1 GM IV (PRE-MIX) 50 ML IV SCH (10:00)
[2022-06-09 10:11] VITALS: BP 123/76
[2022-06-16 08:58] VITALS: BP 123/71
== END 2022-07-08 | disposition home or self-care (01) ==
LOC: SDC 09:35
PROVIDERS: ATTEND Nurse Practitioner Family
DX: A93.8 Other specified arthropod-borne viral fevers (principal); W57.XXXD Bitten or stung by nonvenomous insect and other nonvenomous arthropods, subsequent encounter
CPT/HCPCS: 96365; G0463; 99211

== ENCOUNTER 2023-06-18 09:33 | Emergency (ER) | payer BC ==
[~2023-06-18] VITALS: Ht 172.7 cm; Wt 83.9 kg
--- NOTE | 2023-06-18 10:24 | ED General ---
General Chief Complaint: Chest Pain Stated Complaint: CHEST PRESSURE | HEADACHE Nursing Triage Note: PT AMBULATE TO ROOM 04 WITHOUT DIFFICULTY WITH C/O CHEST PRESSURE THAT RADIATES UP INTO HER HEAD STARTING YESTERDAY. Source of Information: Patient Exam Limitations: No Limitations History of Present Illness Date Seen by Provider: Jun 18, 2023 Time Seen by Provider: 10:05 Allergies and Home Medications Allergies Coded Allergies: latex (Unverified Allergy, Mild, RASH, 09/14/17) Sulfa (Sulfonamide Antibiotics) (Unverified Allergy, Unknown, 09/14/17) prednisone (Verified Allergy, Unknown, 12/27/17) pseudoephedrine (Verified Allergy, Unknown, 12/27/17) Patient Home Medication List No Active Prescriptions or Reported Meds Past [id number] Hx Patient Social History Tobacco Use?: No Smoking Status: Never a Smoker Smokeless Tobacco Frequency: Never a User Use of E-Cig and/or Vaping dev: No Use of E-Cig and/or Vaping [place]: Never a User Substance use?: No Alcohol Use?: No Pt feels they are or have been: No Immunizations Up To Date Tetanus Booster (TDap): Unknown Seasonal Allergies Seasonal Allergies: No Past Medical History Reproductive Disorders: No Loss of Vision: Denies Hearing Impairment: Denies Physical Exam Vital Signs Vital Signs - First Documented 06/18/23 09:51 Temp 36.7 Pulse 72 Resp 19 B/P (MAP) 128/87 (101) O2 Delivery Room Air Capillary Refill : Less Than 3 Seconds Height, Weight, BMI Height: 5'8.00" Weight: 180lbs. 0.0oz. 81.632062gd; 28.00 BMI Method: Progress/Results/Core Measures Suspected Sepsis SIRS Temperature: Pulse: 72 Respiratory Rate: 19 Laboratory Tests 06/18/23 10:01: White Blood Count 6.8 Blood Pressure 128 /87 Mean: 101 Laboratory Tests 06/18/23 10:01: Creatinine 0.79, INR Comment 1.0, Platelet Count 235, Total Bilirubin 0.6 Results/Orders Lab Results Laboratory Tests Test 06/18/23 10:01 Range/Units White Blood Count 6.8 4.3-11.0 10^3/uL Red Blood Count 4.89 3.80-5.11 10^6/uL Hemoglobin 14.3 11.5-16.0 g/dL Hematocrit 44 35-52 % Mean Corpuscular Volume 89 80-99 fL Mean Corpuscular Hemoglobin 29 25-34 pg Mean Corpuscular Hemoglobin Concent 33 32-36 g/dL Red Cell Distribution Width 13.2 10.0-14.5 % Platelet Count 235 130-400 10^3/uL Mean Platelet Volume 11.3 9.0-12.2 fL Immature Granulocyte % (Auto) 0 % Neutrophils (%) (Auto) 66 42-75 % Lymphocytes (%) (Auto) 27 12-44 % Monocytes (%) (Auto) 6 0-12 % Eosinophils (%) (Auto) 1 0-10 % Basophils (%) (Auto) 0 0-10 % Neutrophils # (Auto) 4.5 1.8-7.8 10^3/uL Lymphocytes # (Auto) 1.8 1.0-4.0 10^3/uL Monocytes # (Auto) 0.4 0.0-1.0 10^3/uL Eosinophils # (Auto) 0.1 0.0-0.3 10^3/uL Basophils # (Auto) 0.0 0.0-0.1 10^3/uL Immature Granulocyte # (Auto) 0.0 0.0-0.1 10^3/uL Prothrombin Time 13.4 12.2-14.7 SEC INR Comment 1.0 0.8-1.4 Activated Partial Thromboplast Time 33 24-35 SEC Sodium Level 139 135-145 MMOL/L Potassium Level 4.4 3.6-5.0 MMOL/L Chloride Level 109 H 98-107 MMOL/L Carbon Dioxide Level 20 L 21-32 MMOL/L Anion Gap 10 5-14 MMOL/L Blood Urea Nitrogen 13 7-18 MG/DL Creatinine 0.79 0.60-1.30 MG/DL Estimat Glomerular Filtration Rate 92 BUN/Creatinine Ratio 16 Glucose Level 90 70-105 MG/DL Calcium Level 9.5 8.5-10.1 MG/DL Corrected Calcium 8.5-10.1 MG/DL Magnesium Level 2.3 1.6-2.4 MG/DL Total Bilirubin 0.6 0.1-1.0 MG/DL Aspartate Amino Transf (AST/SGOT) 17 5-34 U/L Alanine Aminotransferase (ALT/SGPT) 12 0-55 U/L Alkaline Phosphatase 57 40-136 U/L Myoglobin 23.8 10.0-92.0 NG/ML Troponin I < 0.028 <0.028 NG/ML Total Protein 7.8 6.4-8.2 GM/DL Albumin 4.6 H 3.2-4.5 GM/DL TSH Banks Testing 0.85 0.35-4.94 UIU/ML Serum Test, Qualitative NEGATIVE NEGATIVE My Orders Orders - LUIS BILLS MD Ekg Tracing (06/18/23 10:17) Cbc And Automated Diff (06/18/23 10:19) Magnesium (06/18/23 10:19) Chest 1 View, Ap/Pa Only (06/18/23 10:19) Comprehensive Metabolic Panel (06/18/23 10:) Myoglobin Serum (06/18/23 10:19) Protime With Inr (06/18/23 10:) Partial Thromboplastin Time (06/18/23 10:) Monitor-Rhythm Ecg Trace Only (06/18/23 10:) Lipid Panel (06/19/23 06:00) Ed Iv/Invasive Line Start (06/18/23 10:19) Troponin I [place] (06/18/23 10:19) Hcg,Qualitative Serum (06/18/23 10:) Thyroid Analyzer (06/18/23 10:19) Orthostatic Vital Signs (Adult (06/18/23 10:19) Lactated Ringers 1,000 Ml (Lactated Ring (06/18/23 10:30) Medications Given in ED Current Medications Medications Dose Ordered Sig/Valeria Route Start Time Stop Time Status Last Admin Dose Admin Lactated Ringer's 1,000 ml @ 0 mls/hr Q0M ONCE IV 06/18/23 10:30 06/18/23 10:31 DC 06/18/23 10:27 999 MLS/HR Vital Signs/I&O 06/18/23 06/18/23 09:51 11:55 Temp 36.7 Pulse 72 71 80 78 Resp 19 B/P (MAP) 128/87 (101) 121/91 (101) 124/79 (94) 131/85 (100) O2 Delivery Room Air Capillary Refill : Less Than 3 Seconds Blood Pressure Mean: 101 ECG Initial ECG Impression Date: Jun 18, 2023 Initial ECG Impression Time: 10:05 Initial ECG Rate: 73 Initial ECG Rhythm: Normal Sinus Initial ECG Intervals: Normal Initial ECG Impression: Normal Comment Normal sinus rhythm with no ST elevation or depression. No abnormal intervals or axis deviation. Departure Impression Primary Impression: Near syncope Additional Impression: Atypical chest pain Disposition: 01 HOME, SELF-CARE Condition: Improved Departure-Patient Inst. Decision time for Depature: 12:32 Referrals: SRAVAN SAINI DO (PCP) Primary Care Physician ELIZABETH SAINI DNP (Family) Primary Care Physician Patient Instructions: Chest Pain, Adult ED, Syncope (fainting) Add. Discharge Instructions: Drink plenty of clear liquids to stay well-hydrated. Follow-up with your primary care provider soon as possible. The exact cause of your symptoms is uncertain at this time. Medication adverse effects should be considered and discussed with your prescribers. In follow-up also discuss if further work-up is indicated. Such work-up may include cardiac monitoring, additional lab work, imaging, etc. at your doctor's discretion. Return to care if you have worsening symptoms despite following these instructions. All discharge instructions reviewed with patient and/or family. Voiced understanding. Scripts No Active Prescriptions or Reported Meds LUIS BILLS MD Jun 18, 2023 10:24
[2023-06-18 10:26] LABS: BASOPHILS % (AUTO) 0 % (0-10); EOSINOPHILS # (AUTO) 0.1 10^3/uL (0.0-0.3); EOSINOPHILS % (AUTO) 1 % (0-10); HEMATOCRIT 44 % (35-52); HEMOGLOBIN 14.3 g/dL (11.5-16.0); LYMPHOCYTES # (AUTO) 1.8 10^3/uL (1.0-4.0); LYMPHOCYTES % (AUTO) 27 % (12-44); MEAN CORPUSCULAR HEMOGLOBIN 29 pg (25-34); MEAN CORPUSCULAR HGB CONC 33 g/dL (32-36); MEAN CORPUSCULAR VOLUME 89 fL (80-99); MEAN PLATELET VOLUME 11.3 fL (9.0-12.2); MONOCYTES # (AUTO) 0.4 10^3/uL (0.0-1.0); MONOCYTES % (AUTO) 6 % (0-12); NEUTROPHILS # (AUTO) 4.5 10^3/uL (1.8-7.8); NEUTROPHILS % (AUTO) 66 % (42-75); PLATELET COUNT 235 10^3/uL (130-400); WHITE BLOOD COUNT 6.8 10^3/uL (4.3-11.0)
[2023-06-18] MEDS ORDERED: LACTATED RINGERS 1,000 ML 1,000 ML IV ONE (10:30)
[2023-06-18 10:31] LABS: PROTHROMBIN TIME PATIENT 13.4 SEC (12.2-14.7)
[2023-06-18 10:37] LABS: ALANINE AMINOTRANSFERASE 12 U/L (0-55); ALBUMIN 4.6 GM/DL (3.2-4.5); ALKALINE PHOSPHATASE 57 U/L (40-136); BILIRUBIN,TOTAL 0.6 MG/DL (0.1-1.0); BUN/CREATININE RATIO 16; CALCIUM 9.5 MG/DL (8.5-10.1); CARBON DIOXIDE 20 MMOL/L (21-32); CHLORIDE 109 MMOL/L (98-107); CREATININE SERUM 0.79 MG/DL (0.60-1.30); GFR ESTIMATED 92; GLUCOSE 90 MG/DL (70-105); MAGNESIUM 2.3 MG/DL (1.6-2.4); POTASSIUM 4.4 MMOL/L (3.6-5.0); SODIUM 139 MMOL/L (135-145); TOTAL PROTEIN 7.8 GM/DL (6.4-8.2)
[2023-06-18 10:58] LABS: TSH (THYROID ANALYZER) 0.85 UIU/ML (0.35-4.94)
--- NOTE | 2023-06-18 11:14 | Diagnostic Imaging Report ---
INDICATION: Chest pain COMPARISON: 07/10/2020 FINDINGS: Lungs clear. No failure, effusion or pneumothorax. IMPRESSION: No acute appearing abnormality. Dictated by: Dictated on workstation # [id number]
[2023-06-18 11:55] VITALS: BP_SYST 121; BP_SYST 124; BP_SYST 131; BP_DIAS 79; BP_DIAS 85; BP_DIAS 91
[2023-06-18 13:22] VITALS: BP 125/85
== END 2023-06-18 13:23 | disposition home or self-care (01) ==
LOC: EDUNIT# 09:33 → ER 09:34
DX: R07.89 Other chest pain (principal); R55 Syncope and collapse; Z91.040 Latex allergy status
CPT/HCPCS: 36415; 71045; 80053; 83735; 83874; 84443; 84484; 84703; 85025; 85610; 85730; 93005; 93041

== ENCOUNTER → 2023-07-16 | Outpatient (CLI) | payer BC ==
[~2023-07-16] VITALS: Ht 172.7 cm; Wt 84.8 kg
[~2023-07-16] MED LIST changes: +NALT1TAB PO; -NS (IVPB) 100 ML ONE; +SEMA1PEN3 SQ; -cefTRIAXone 1 GM (ROCEPHIN) VIAL ONE
== END | disposition home or self-care (01) ==
LOC: PREOP 05:33
PROVIDERS: ATTEND Surgery
DX: Z01.818 Encounter for other preprocedural examination (principal)